=== PATIENT | male | born 1945 | race Caucasian/White ===

== ENCOUNTER 2023-05-03 07:35 | Outpatient (CLI) | payer OTHER, SELFPAY | END 2023-05-03 07:36 | disposition home or self-care (01) | PROVIDERS: PCP Family Medicine; Visit Provider Family Medicine | DX: I26.99 Other pulmonary embolism without acute cor pulmonale (principal); I48.92 Unspecified atrial flutter | CPT/HCPCS: A0425; A0434 ==